=== PATIENT | male | born 1985 | race Caucasian/White ===

== ENCOUNTER → 2017-03-09 | Day surgery (SDC) | payer OTHER ==
[~2017-03-09] VITALS: Ht 182.9 cm; Wt 79.3 kg
[~2017-03-09] MED LIST: ALLEGRA ALLERGY60 MG PO; MULTI VITAMIN1 EACH PO; OMEPRAZOLE 20 M20 M1 PO; TRAZODONE PO; VITAMIN C500 M1 PO
--- NOTE | ~2017-03-09 | O ---
[facility] [place] [address] OPERATIVE REPORT Name: HARVEY ALVA Room #: 150-2 [facility]#: [id number] Admission: 03/09/17 Attend Phys: Hosea Bautista MD Discharge: Date of : 85 Report #: [id number] THIS REPORT FOR: //name// CC: Hosea Vega DATE OF SERVICE: 03/09/2017 PREOPERATIVE DIAGNOSES: 1. Nasal airway obstruction. 2. Turbinate hypertrophy. POSTOPERATIVE DIAGNOSES: 1. Nasal airway obstruction. 2. Turbinate hypertrophy. PROCEDURES: Nasal septoplasty, submucous obstruction, inferior turbinates with outfracturing. SURGEON: Hosea Bautista M.D. ANESTHESIA: General LMA. INDICATIONS: See H and P. FINDINGS: Extremely bowed quadrangular cartilage and anterior portion of vomer to the right side with a bony spur of the vomer noted, left greater than right turbinate hypertrophy noted. TECHNIQUE: After obtaining consent, he was brought to the operating suite, appropriate time out was performed. General LMA anesthesia was maintained and obtained through the case. The bed was turned 90 degrees. Nose was prepped and draped in usual sterile fashion, 6 mL of 1% Xylocaine 1:100,000 epinephrine was injected on each side of the septum. Later in the case, an additional 2 mL was injected on the medial surface of each inferior turbinate, care being made not to inject intravascularly. A right-sided hemitransfixion was made with elevation of mucoperiosteal flap on the left side exposing the quadrangular cartilage, vomer and perpendicular plate. A large piece of the bowed cartilage was harvested sharply. Back elevation of the mucosal flap on the right side was then performed after disarticulating the superior portion of the bony cartilaginous junction. A small part of the maxillary crest was removed anteriorly on the left side due to the bowing as well. The vomer spur was removed with combination of Farhan scissors and Gerardo forceps. Upon removal, the septum was back in midline. Previously harvested cartilage was trimmed, morcellized placed [facility] [address] [place] [address] OPERATIVE REPORT Name: ALVAHARVEY Room #: 150-2 [facility]#: [id number] Admission: 03/09/17 Attend Phys: Hosea Bautista MD Discharge: Date of : 85 Report #: [id number] back between the septal folds. There was a tear on the right inferior septal fold that was used for postoperative drainage purposes, but no adjacent perforations were noted. Hemitransfixion incision was closed with simple interrupted 4-0 chromic sutures. Simple splints were designed and fashioned by myself, placed on each side of septum and secured with a 3-0 Prolene suture. Each inferior turbinate was medialized with a Williamson elevator. The above local anesthetic was injected. A Billings blade was used to make a small stab incision on the anterior portion of the inferior turbinate. Caudal elevator was used to elevate a mucosal flap on the medial and medial inferior surface. Microdebrider was used to remove submucosally the anterior portion of the inferior turbinate on each side. Each inferior turbinate was then outfractured with the elevator. Merogel was placed around the inferior turbinate bilaterally. He was then allowed to awaken from anesthesia, having met the goals of surgery, taken to recovery room in stable condition. ESTIMATED BLOOD LOSS: 20-25 mL. By: 0849 [id number] Hosea Bautista MD /facundo
--- NOTE | ~2017-03-09 | H ---
[facility] [place] [address] HISTORY AND PHYSICAL Name: HARVEY ALVA Room #: 150-2 [facility]#: [id number] Admission: 03/09/17 Attend Phys: Hosea Batuista MD Discharge: Date of : 85 Report #: [id number] THIS REPORT FOR: //name// CC: FAM unknown Hosea Bautista DATE OF SERVICE: 03/08/2017 DATE OF SURGERY: 03/09/2017. CHIEF COMPLAINT: Nasal airway obstruction. HISTORY OF PRESENT ILLNESS: The patient was evaluated in September of this year with a longstanding history of nasal airway obstruction and postnasal drainage and symptoms consistent with chronic rhinitis. It has been a persistent problem for many years. He has tried the use of Afrin without any substantial relief and allergy medications not given him significant relief. He has noticed significant cycling of his obstruction from the right to the left side as well. Physical examination demonstrated a substantial deviated septum along with turbinate hypertrophy. We discussed his options for pursuing medical arm of therapy, which would included a more aggressive treatment arm for allergies. He is aware this will not change his anatomy, but may give him some degree of symptom relief. On further discussion with the patient, he wishes to try a surgical intervention any medical therapy. Surgical risks and benefits were discussed with him along with expected outcomes in his nonsurgical alternatives. ALLERGIES TO MEDICATIONS: None. MEDICATIONS ON ADMISSION: Soha 180 mg once a day, omeprazole 40 mg daily, sertraline 50 mg daily, trazodone 50 mg daily, and Zyrtec 10 mg once a day. PAST MEDICAL AND SURGICAL HISTORY: Remarkable aside from acid reflux disease and allergic rhinitis. FAMILY HISTORY: Noncontributory. REVIEW OF SYSTEMS: Negative for any known cardiovascular, pulmonary or hematopoietic issues. PHYSICAL EXAMINATION: VITAL SIGNS: Height of 6 feet, weight 180 pounds, and blood pressure record 142/79. HEENT: Unremarkable for any abnormalities in the ears, oral cavity, and [facility] [address] [place] [address] HISTORY AND PHYSICAL Name: HARVEY ALVA Room #: [address] [place] [address]#: [id number] Admission: 03/09/17 Attend Phys: Hosea Bautista MD Discharge: Date of : 85 Report #: [id number] oropharynx. Nares examination shows a septal deflection to the right, obstructing the middle meatus by about 75%, left greater than right turbinate hypertrophy, which does reduce nicely with Afrin. NECK: Normal to palpation. CHEST: Clear. CARDIOVASCULAR: Regular rhythm and regular rate. ASSESSMENT: History of nasal airway obstruction secondary to turbinate and septal deformities. PLAN: Plan will surgery. <ELECTRONICALLY SIGNED> By: Hosea Bautista MD 03/09/17 1019 [id number] Hosea Bautista MD /nt
[2017-03-09 06:38] VITALS: BP 136/81
[2017-03-09 08:58] VITALS: BP 136/81
== END | disposition home or self-care (01) ==
LOC: OR 05:20 → TBA 05:20 → OR 13:43
DX: J34.3 Hypertrophy of nasal turbinates (principal); F32.9 Major depressive disorder, single episode, unspecified; F41.9 Anxiety disorder, unspecified; K21.9 Gastro-esophageal reflux disease without esophagitis
CPT/HCPCS: 50010; 50101